=== PATIENT | female | born 1945 | race Caucasian/White ===

== ENCOUNTER 2018-01-07 10:00 | Day surgery (SDC) | payer OTHER ==
[~2018-01-07] VITALS: Ht 157.5 cm; Wt 104.7 kg
[~2018-01-07 10:00] MED LIST: CEPH500 PO; CHOL10002 PO; Coq-10100 MG PO; Fish Oil 1,0001 EAC3 PO; HYDACE5 PO; LEVSOD75 PO; LOSHYD PO; Prinivil10 MG PO; ROSU5 PO
[2018-05-22] MEDS ORDERED: ASPI325EC PO (13:31)
[2018-05-22] MEDS ORDERED: Roxicodone5 MG PO (13:31)
== END 2018-01-07 12:34 | disposition home or self-care (01) ==
LOC: ORSCSDS 10:00
PROVIDERS: Internal Medicine Gastroenterology
PROC: 0DBK8ZX Excision of Ascending Colon, Via Natural or Artificial Opening Endoscopic, Diagnostic (ICD-10-PCS; principal; 2018-01-07 11:30)
PROC: 0DBP8ZX Excision of Rectum, Via Natural or Artificial Opening Endoscopic, Diagnostic (ICD-10-PCS; principal; 2018-01-07 11:30)
DX: Z12.11 Encounter for screening for malignant neoplasm of colon (principal); D12.2 Benign neoplasm of ascending colon; K62.1 Rectal polyp; K64.8 Other hemorrhoids; K57.30 Diverticulosis of large intestine without perforation or abscess without bleeding; Z86.010 Personal history of colon polyps; I10 Essential (primary) hypertension; G47.33 Obstructive sleep apnea (adult) (pediatric); J44.9 Chronic obstructive pulmonary disease, unspecified; E78.5 Hyperlipidemia, unspecified; E03.9 Hypothyroidism, unspecified; E66.01 Morbid (severe) obesity due to excess calories; Z68.41 Body mass index [BMI] 40.0-44.9, adult; Z87.891 Personal history of nicotine dependence; Z79.899 Other long term (current) drug therapy
CPT/HCPCS: 88305; J2250; J7120

== ENCOUNTER 2018-05-21 05:55 | Day surgery (SDC) | payer OTHER ==
[~2018-05-21] VITALS: Ht 157.5 cm; Wt 94.3 kg
[2018-05-22 05:03] LABS: BASOPHILS ABSOLUTE AUTO 0.01 K/mm3 (0.00-0.23); BASOPHILS PERCENT AUTO 0 % (0-2); EOSINOPHILS ABSOLUTE AUTO 0.02 K/mm3 (0.00-0.68); EOSINOPHILS PERCENT AUTO 0 % (0-6); Hematocrit 31.9 % (33.0-51.0); Hemoglobin 10.7 g/dL (11.5-16.0); IMMATURE GRAN PERCENT AUTO 1 % (0-1); LYMPHOCYTES ABSOLUTE AUTO 1.13 K/mm3 (0.84-5.20); LYMPHOCYTES PERCENT AUTO 11 % (21-46); MONOCYTES ABSOLUTE AUTO 0.77 K/mm3 (0.16-1.47); MONOCYTES PERCENT AUTO 8 % (4-13); Mean Corpuscular HGB 28.8 pg (26.0-34.0); Mean Corpuscular HGB Conc 33.5 g/dL (31.5-36.5); Mean Corpuscular Volume 86 fL (80-100); NEUTROPHILS PERCENT AUTO 80 % (41-73); Platelet Count 112 K/mm3 (150-400); RDW Coefficient Variation 12.7 % (11.7-14.2); RDW Standard Deviation 39.5 fL (35.1-46.3); Red Blood Cell Count 3.72 M/mm3 (3.80-5.20); White Blood Cell Count 10.33 K/mm3 (4.00-11.30)
[2018-05-22 05:30] LABS: Bun/Creatinine Ratio 21.1 (12.0-20.0); Calcium, Blood 8.8 mg/dL (8.5-10.1); Creatinine, Blood 1.09 mg/dL (0.40-1.00); Potassium, Blood 4.2 mmol/L (3.5-5.5)
[2018-05-22] MEDS ORDERED: ASPI325EC PO ×2 (13:31)
[2018-05-22] MEDS ORDERED: Roxicodone5 MG PO ×2 (13:31)
[2018-05-23] MEDS ORDERED: METO10 PO (06:05)
== END 2018-05-22 14:49 | disposition home or self-care (01) ==
LOC: ORSCMMR 05:55 → ORD 07:30 → ORSCMMR 07:30 → SURS 10:43 → ORSCMMR 22:41
PROVIDERS: Orthopaedic Surgery
PROC: 0SRD0J9 Replacement of Left Knee Joint with Synthetic Substitute, Cemented, Open Approach (ICD-10-PCS; principal; 2018-05-21 07:30)
DX: M17.12 Unilateral primary osteoarthritis, left knee (principal); E03.9 Hypothyroidism, unspecified; E78.5 Hyperlipidemia, unspecified; I10 Essential (primary) hypertension; G47.33 Obstructive sleep apnea (adult) (pediatric); Z87.891 Personal history of nicotine dependence; E66.01 Morbid (severe) obesity due to excess calories; Z68.38 Body mass index [BMI] 38.0-38.9, adult; Z79.899 Other long term (current) drug therapy
CPT/HCPCS: 36415; 73560-LT; 80048; 85025; 86850; 86900; 86901; 88300; 94762; 97116; 97161; 97530; C1713; C1776; G8978; G8979; J0171; J0690; J0735; J1100; J1885; J2001; J2250; J2405; J2550; J2795; J3010; J7120

== ENCOUNTER 2018-05-23 03:13 | Emergency (ER) | payer OTHER ==
[~2018-05-23] VITALS: Ht 157.5 cm; Wt 91.6 kg
[~2018-05-23 03:13] MED LIST changes: +ASPI325EC PO; +Roxicodone5 MG PO
[2018-05-23] MEDS ORDERED: METO10 PO (06:05)
== END 2018-05-23 06:23 | disposition home or self-care (01) ==
LOC: ER 03:13
DX: R11.2 Nausea with vomiting, unspecified (principal); G89.18 Other acute postprocedural pain; I10 Essential (primary) hypertension; E03.9 Hypothyroidism, unspecified; Z88.8 Allergy status to other drugs, medicaments and biological substances; Z91.030 Bee allergy status; Z88.2 Allergy status to sulfonamides; Z79.899 Other long term (current) drug therapy; Z79.82 Long term (current) use of aspirin
CPT/HCPCS: 96372; 99283; J2765

== ENCOUNTER 2021-02-23 09:42 | Day surgery (SDC) | payer OTHER ==
[~2021-02-23] VITALS: Ht 157.5 cm; Wt 104.7 kg
[~2021-02-23 09:42] MED LIST changes: +Fish Oil 1 PO; -Fish Oil 1,0001 EAC3 PO; +Lisinopril-Hct1 EAC4 PO; +METO10 PO; +STOOL SOFTENER PO
== END 2021-02-23 11:45 | disposition home or self-care (01) ==
LOC: ORSCSDS 09:42
PROVIDERS: Internal Medicine Gastroenterology
PROC: 0DBK8ZX Excision of Ascending Colon, Via Natural or Artificial Opening Endoscopic, Diagnostic (ICD-10-PCS; principal; 2021-02-23 11:00)
PROC: 0DBM8ZX Excision of Descending Colon, Via Natural or Artificial Opening Endoscopic, Diagnostic (ICD-10-PCS; principal; 2021-02-23 11:00)
PROC: 0DBP8ZX Excision of Rectum, Via Natural or Artificial Opening Endoscopic, Diagnostic (ICD-10-PCS; principal; 2021-02-23 11:00)
PROC: 0DBH8ZX Excision of Cecum, Via Natural or Artificial Opening Endoscopic, Diagnostic (ICD-10-PCS; principal; 2021-02-23 11:00)
DX: Z12.11 Encounter for screening for malignant neoplasm of colon (principal); Z86.010 Personal history of colon polyps; D12.0 Benign neoplasm of cecum; D12.2 Benign neoplasm of ascending colon; K63.5 Polyp of colon; K62.1 Rectal polyp; K64.1 Second degree hemorrhoids; I10 Essential (primary) hypertension; G47.33 Obstructive sleep apnea (adult) (pediatric); J44.9 Chronic obstructive pulmonary disease, unspecified; E78.5 Hyperlipidemia, unspecified; I48.91 Unspecified atrial fibrillation; Z87.891 Personal history of nicotine dependence; E03.9 Hypothyroidism, unspecified; Z86.73 Personal history of transient ischemic attack (TIA), and cerebral infarction without residual deficits; Z79.899 Other long term (current) drug therapy
CPT/HCPCS: 88305; J2704; J7120

== ENCOUNTER 2024-07-29 07:45 | Day surgery (SDC) | payer OTHER ==
[~2024-07-29] VITALS: Ht 160 cm; Wt 89.4 kg
[~2024-07-29 07:45] MED LIST changes: +Erythromycin 0.5% Opth Oint 1 gm ONE; +NS 500 ML IV ONE; +OMEP20ER
[2024-07-29] MEDS ORDERED: CENTRUM SILVER1 EAC2 PO (08:23)
[2024-07-29] MEDS ORDERED: NS 500 ML IV ONE (08:33)
--- NOTE | 2024-07-29 08:34 | NUR ---
07/29/24 0834 Matthew Quintana CALL LIGHT WITHIN REACH.
[2024-07-29] MEDS ORDERED: propofoL 20 ML IV ONE (08:51)
[2024-07-29] MEDS ORDERED: Bupivacaine 0.75% Inj 30 ML Vial INJ ONE ×2 (09:26→09:31)
[2024-07-29] MEDS ORDERED: Lidocaine 2%-Epineph 1:100000 20 ML MDV INJ ONE ×2 (09:26)
[2024-07-29] MEDS ORDERED: Sugarcaine Ophth Soln 3 mL SYR BOTHEYES ONE ×3 (09:29→09:47)
[2024-07-29 09:56] VITALS: BP 159/67
== END 2024-07-29 10:19 | disposition home or self-care (01) ==
LOC: ORSCSDS 07:45
PROVIDERS: Ophthalmology
PROC: 080PXZZ Alteration of Left Upper Eyelid, External Approach (ICD-10-PCS; principal; 2024-07-29 09:00)
PROC: 080NXZZ Alteration of Right Upper Eyelid, External Approach (ICD-10-PCS; principal; 2024-07-29 09:00)
DX: H02.831 Dermatochalasis of right upper eyelid (principal); H02.834 Dermatochalasis of left upper eyelid; I10 Essential (primary) hypertension; J44.9 Chronic obstructive pulmonary disease, unspecified; K21.9 Gastro-esophageal reflux disease without esophagitis; Z79.899 Other long term (current) drug therapy
CPT/HCPCS: 82947; A9270; J2704; J7040

== ENCOUNTER → 2024-08-04 | Outpatient (CLI) | payer OTHER ==
[~2024-08-04] MED LIST changes: +CENTRUM SILVER1 EAC2 PO; -Erythromycin 0.5% Opth Oint 1 gm ONE; -NS 500 ML IV ONE
== END ==
LOC: LAB SHORT 15:05 → PLD 15:05
DX: D48.5 Neoplasm of uncertain behavior of skin (principal)
CPT/HCPCS: 88312

== ENCOUNTER 2024-08-30 18:10 | Inpatient (IN) | payer OTHER ==
[~2024-08-30] VITALS: Ht 157.5 cm; Wt 89.6 kg
[~2024-08-30 18:10] MED LIST changes: +Lactated Ringer's 1,000 ML IV SCH
[2024-08-30 19:54] LABS: BASOPHILS ABSOLUTE AUTO 0.03 K/mm3 (0.00-0.23); BASOPHILS PERCENT AUTO 1 % (0-2); EOSINOPHILS ABSOLUTE AUTO 0.19 K/mm3 (0.00-0.68); EOSINOPHILS PERCENT AUTO 4 % (0-6); Hematocrit 34.5 % (33.0-51.0); Hemoglobin 11.4 g/dL (11.5-16.0); IMMATURE GRAN ABSOLUTE AUTO 0.02 K/mm3 (0.00-0.10); IMMATURE GRAN PERCENT AUTO 0 % (0-1); LYMPHOCYTES ABSOLUTE AUTO 2.48 K/mm3 (0.84-5.20); LYMPHOCYTES PERCENT AUTO 48 % (21-46); MONOCYTES ABSOLUTE AUTO 0.65 K/mm3 (0.16-1.47); MONOCYTES PERCENT AUTO 13 % (4-13); Mean Corpuscular HGB 30.4 pg (26.0-34.0); Mean Corpuscular Volume 92 fL (80-100); NEUTROPHILS ABSOLUTE AUTO 1.82 K/mm3 (1.96-9.15); NEUTROPHILS PERCENT AUTO 35 % (41-73); Platelet Count 131 K/mm3 (150-400); RDW Coefficient Variation 13.2 % (11.7-14.2); RDW Standard Deviation 44.7 fL (35.1-46.3); Red Blood Cell Count 3.75 M/mm3 (3.80-5.20); White Blood Cell Count 5.19 K/mm3 (4.00-11.30)
[2024-08-30 20:19] LABS: Albumin, Blood 3.6 g/dL (3.4-5.0); Bilirubin, Total 0.4 mg/dL (0.1-1.0); Bun/Creatinine Ratio 25.3 (12.0-20.0); Calcium, Blood 9.5 mg/dL (8.5-10.1); Creatinine, Blood 0.87 mg/dL (0.40-1.00); Globulin, Blood 3.6 g/dL (2.2-4.0); Potassium, Blood 4.2 mmol/L (3.5-5.5); Total Protein, Blood 7.2 g/dL (6.4-8.2)
[2024-08-30] MEDS ORDERED: Nitroglycerin 0.4 MG SUBL SL PRN (23:25)
[2024-08-30] MEDS ORDERED: FLU VACC TS2024-25(6MOS UP)/PF 45 MCG/0.5 ML SYRINGE IM ONE (23:25)
[2024-08-30] MEDS ORDERED: Ondansetron HCl 2 MG / ML 2ML Vial IV PRN (23:25)
[2024-08-30 23:42] LABS: Magnesium, Blood 1.9 mg/dL (1.6-2.4)
[2024-08-31] MEDS ORDERED: Lactated Ringer's 1,000 ML IV ONE (01:27)
[2024-08-31] MEDS ORDERED: METFORMIN HCL500 M2 PO (01:46)
[2024-08-31] MEDS ORDERED: CENTRUM SILVER1 EAC2 PO (01:47)
[2024-08-31] MEDS ORDERED: Preservision S1 EACH PO (01:48)
[2024-08-31] MEDS ORDERED: Levothyroxine Sodium 0.075 MG Tab PO SCH ×2 (06:00→18:00)
[2024-08-31 06:23] LABS: BASOPHILS ABSOLUTE AUTO 0.02 K/mm3 (0.00-0.23); BASOPHILS PERCENT AUTO 1 % (0-2); EOSINOPHILS ABSOLUTE AUTO 0.19 K/mm3 (0.00-0.68); EOSINOPHILS PERCENT AUTO 5 % (0-6); Hematocrit 31.5 % (33.0-51.0); Hemoglobin 10.4 g/dL (11.5-16.0); IMMATURE GRAN ABSOLUTE AUTO 0.01 K/mm3 (0.00-0.10); IMMATURE GRAN PERCENT AUTO 0 % (0-1); LYMPHOCYTES ABSOLUTE AUTO 1.88 K/mm3 (0.84-5.20); LYMPHOCYTES PERCENT AUTO 48 % (21-46); MONOCYTES ABSOLUTE AUTO 0.38 K/mm3 (0.16-1.47); MONOCYTES PERCENT AUTO 10 % (4-13); Mean Corpuscular HGB 30.1 pg (26.0-34.0); Mean Corpuscular Volume 91 fL (80-100); NEUTROPHILS ABSOLUTE AUTO 1.44 K/mm3 (1.96-9.15); NEUTROPHILS PERCENT AUTO 37 % (41-73); Platelet Count 115 K/mm3 (150-400); RDW Coefficient Variation 13.3 % (11.7-14.2); RDW Standard Deviation 44.9 fL (35.1-46.3); Red Blood Cell Count 3.45 M/mm3 (3.80-5.20); White Blood Cell Count 3.92 K/mm3 (4.00-11.30)
[2024-08-31 06:40] LABS: Albumin, Blood 3.1 g/dL (3.4-5.0); Albumin/Globulin Ratio 0.9 (0.8-1.8); Bilirubin, Total 0.5 mg/dL (0.1-1.0); Bun/Creatinine Ratio 23.8 (12.0-20.0); Calcium, Blood 8.9 mg/dL (8.5-10.1); Creatinine, Blood 0.8 mg/dL (0.40-1.00); Globulin, Blood 3.3 g/dL (2.2-4.0); Potassium, Blood 3.7 mmol/L (3.5-5.5); Total Protein, Blood 6.4 g/dL (6.4-8.2)
[2024-08-31] MEDS ORDERED: Enoxaparin 40 MG/0.4 ML SYR SC SCH (09:00)
[2024-08-31] MEDS ORDERED: HydroCHLOROthiazide 25 mg Tab PO SCH (09:00)
[2024-08-31] MEDS ORDERED: Aspirin 81 MG Chew PO SCH (09:00)
[2024-08-31] MEDS ORDERED: Docosahexanoic Acid/EPA 1,000 MG CAP PO SCH (09:00)
[2024-08-31] MEDS ORDERED: Lisinopril 10 MG Tab PO SCH (09:00)
[2024-08-31] MEDS ORDERED: Docusate Sodium 100 MG Cap PO SCH (09:00)
[2024-08-31] MEDS ORDERED: Cholecalciferol 1000 Unit Tablet (=25MCG) PO SCH (09:00)
[2024-08-31] MEDS ORDERED: Misc. Tablet PO SCH (09:00)
[2024-08-31] MEDS ORDERED: Aminophylline 250MG / 10ML 10 ML Vial ONE (13:35)
[2024-08-31] MEDS ORDERED: Regadenoson 0.4 MG/5 ML SYRINGE ONE (13:35)
[2024-08-31] MEDS ORDERED: Caffeine Citrated 60 MG/3 ML Vial ONE (13:35)
[2024-08-31 15:50] VITALS: BP 144/64
--- NOTE | 2024-08-31 15:50 | NUR ---
PT ARRIVED TO THE ROOM AT APPROXIMATELY 1545. PT DENIED SOB AND CHEST PAIN. PT EDUCATED TO USE CALL LIGHT. FAMILY AT BEDSIDE FOR SUPPORT.
[2024-08-31] MEDS ORDERED: FISH OIL 1,0001 EA10 PO (16:05)
[2024-08-31] MEDS ORDERED: AREDS PO (16:06)
[2024-08-31] MEDS ORDERED: Docusate Sodiu250 MG PO (16:07)
[2024-08-31] MEDS ORDERED: THERA-D2000 UNIT PO (16:08)
[2024-08-31] MEDS ORDERED: UBID10 PO (16:09)
[2024-08-31] MEDS ORDERED: LEVSOD75 PO (16:09)
[2024-08-31] MEDS ORDERED: METF500 PO (16:10)
[2024-08-31] MEDS ORDERED: ROSUVASTATIN CAL5 MG PO (16:10)
[2024-08-31 20:16] VITALS: BP 118/43
--- NOTE | 2024-08-31 20:26 | NUR ---
SHIFT SUMMARY NO SIGNIFICANT CHANGES TO REPORT SINCE PT ARRIVED FROM THE ER. PT DENIED ANY CHEST DISCOMFORT/SOB SINCE ARRIVAL TO THE ROOM FROM ER. DURING BEDSIDE REPORT PT REPORTED THAT SHE BRIEFLY HAD CHEST DISCOMFORT AFTER EATING AND IT RESOLVED SO SHE DID NOT NOTIFY THIS RN. PT WAS EDUCATED TO NOTIFY THE RN OF ANY CHANGES R/T SOB AND CHEST PAIN EVEN IF THEY RESOLVE. PT IS INDEPENDENT IN THE ROOM. SHE USES THE CALL LIGHT APPROPRIATELY.
--- NOTE | 2024-08-31 20:30 | NUR ---
METFORMIN: PT REP BROUGHT IN HOME METFORMIN AND "EYE PILL". PT REP HAVING TAKEN BOTH OF THESE HOME MEDS THIS BRYANT AFTER SPOUSE BROUGHT MEDS IN FOR HER. PT EDUCATED ON IMPORTANCE OF NOT TAKING HOME MEDS AND IMPORTANCE NOT TAKING ANY MEDS W/O DISCUSSING W/NURSING STAFF. PRIMARY RN UPDATED.
[2024-08-31] MEDS ORDERED: Calcium Carbonate 500 MG Tab Chew PO PRN (20:55)
--- NOTE | 2024-08-31 20:56 | NUR ---
PT REPORTED SHE HAD EPISODE OF CP AFTER EATING DINNER,BUT VERB IT HAD RESOLVED PRIOR TO 1900 SHIFT CHANGE.AT THIS TIME, PT REPORTS HAVING PRESSURE TO EPIGASTRIC AREA WITH RADIATION "STRAIGHT THRU TO BACK",AND ADDITIONAL PRESSURE UNDER L BREAST.PT REPORTS LASTED APPROX 5 MINUTES.SEE VS.TELE SHOWS SINUS RHYTHMN WITH FREQUENT PVCS.PT ALERT AND RESTING UPRIGHT IN BED WITH AT SIDE.DENIES SOB,NO N/T,NO VISION CHANGES OR HEADACHES,CIRC CHECKS INTACT.I CALLED DR SINCLAIR AND ADVISED OF ABOVE.ALSO ADVISED PT VERB SHE DRANK 2 GLASSES OF SODA AFTER FIRST PORTION OF STRESS TEST.I NOTIFIED DR JON OF SODA DUE TO STRESS TEST SECOND PORTION TOMORROW AM, VS REVIEWED.ALSO ADVISED PT TOOK HER METFORMIN AND "AREDS "FOR EYES PRIOR TO NOTIFYING HOLE FILLER.I DISCUSSED WITH PT RESTRICTIONS.
[2024-09-01 04:02] VITALS: BP 123/37
[2024-09-01 04:23] LABS: BASOPHILS ABSOLUTE AUTO 0.03 K/mm3 (0.00-0.23); BASOPHILS PERCENT AUTO 1 % (0-2); EOSINOPHILS ABSOLUTE AUTO 0.14 K/mm3 (0.00-0.68); EOSINOPHILS PERCENT AUTO 4 % (0-6); Hematocrit 31.3 % (33.0-51.0); Hemoglobin 10.3 g/dL (11.5-16.0); IMMATURE GRAN PERCENT AUTO 0 % (0-1); LYMPHOCYTES ABSOLUTE AUTO 1.88 K/mm3 (0.84-5.20); LYMPHOCYTES PERCENT AUTO 52 % (21-46); MONOCYTES ABSOLUTE AUTO 0.34 K/mm3 (0.16-1.47); MONOCYTES PERCENT AUTO 9 % (4-13); Mean Corpuscular HGB 30.1 pg (26.0-34.0); Mean Corpuscular HGB Conc 32.9 g/dL (31.5-36.5); Mean Corpuscular Volume 92 fL (80-100); NEUTROPHILS ABSOLUTE AUTO 1.25 K/mm3 (1.96-9.15); NEUTROPHILS PERCENT AUTO 35 % (41-73); Platelet Count 111 K/mm3 (150-400); RDW Coefficient Variation 13.3 % (11.7-14.2); Red Blood Cell Count 3.42 M/mm3 (3.80-5.20); White Blood Cell Count 3.64 K/mm3 (4.00-11.30)
[2024-09-01 04:42] LABS: Bun/Creatinine Ratio 28.3 (12.0-20.0); Calcium, Blood 8.9 mg/dL (8.5-10.1); Creatinine, Blood 0.81 mg/dL (0.40-1.00); Potassium, Blood 3.8 mmol/L (3.5-5.5)
--- NOTE | 2024-09-01 06:38 | NUR ---
SUMMARY NO FURTHER REPORTS OF CHEST DISCOMFORT.PT SLEPT MOST OF NIGHT.PENDING SECOND PART OF STRESS TEST THIS AM.
[2024-09-01 07:13] VITALS: BP 110/36
[2024-09-01] MEDS ORDERED: PRESERVISION A1 EAC1 PO (09:48)
[2024-09-01] MEDS ORDERED: TRIDERM28.4 GM TOP (10:45)
[2024-09-01 14:04] VITALS: BP 135/44
--- NOTE | 2024-09-01 19:37 | NUR ---
SHIFT SUMMARY S/P STRESS TEST. CARDIOLOGY CONSULT TODAY. ANTICIPATED ANGIO TOMORROW AM. VSS, TELE - SINUS @ 78. PT DID NOT REPORT CHEST PAIN/PRESSURE TO THIS RN TODAY. PT TOLERATING REG DIET TODAY. VOIDING IND. AMB IND TO SBA. SALIENE LOCKED. NPO AT MIDNIGHT R/T PROCEDURE. CALL LIGHT IN REACH, BED IN LOWEST POSITION, REPORT GIVEN TO ZAYNAB RN.
[2024-09-01 19:50] VITALS: BP 128/48
[2024-09-02] VITALS (16 sets, daily range): BP systolic 95–152; BP diastolic 47–85
[2024-09-02 05:07] LABS: BASOPHILS ABSOLUTE AUTO 0.02 K/mm3 (0.00-0.23); BASOPHILS PERCENT AUTO 1 % (0-2); EOSINOPHILS PERCENT AUTO 5 % (0-6); Hemoglobin 10.3 g/dL (11.5-16.0); IMMATURE GRAN ABSOLUTE AUTO 0.01 K/mm3 (0.00-0.10); IMMATURE GRAN PERCENT AUTO 0 % (0-1); LYMPHOCYTES ABSOLUTE AUTO 1.69 K/mm3 (0.84-5.20); LYMPHOCYTES PERCENT AUTO 44 % (21-46); MONOCYTES ABSOLUTE AUTO 0.42 K/mm3 (0.16-1.47); MONOCYTES PERCENT AUTO 11 % (4-13); Mean Corpuscular HGB 30.4 pg (26.0-34.0); Mean Corpuscular HGB Conc 33.2 g/dL (31.5-36.5); Mean Corpuscular Volume 91 fL (80-100); NEUTROPHILS ABSOLUTE AUTO 1.48 K/mm3 (1.96-9.15); NEUTROPHILS PERCENT AUTO 39 % (41-73); Platelet Count 112 K/mm3 (150-400); RDW Coefficient Variation 13.3 % (11.7-14.2); RDW Standard Deviation 44.4 fL (35.1-46.3); Red Blood Cell Count 3.39 M/mm3 (3.80-5.20); White Blood Cell Count 3.82 K/mm3 (4.00-11.30)
--- NOTE | 2024-09-02 05:08 | NUR ---
SHIFT SUMMARY MARKNALEE WAS ALERT AND FULLY ORIENTED ON ASSESMENT. PT DENIES C/P/PRESSURE TONIGHT, STRESS TEST YESTERDAY, ANTICIPATING ANGIO ON DAYSHIFT TODAY. NO ALERTS FROM TELE. PT KEPT NPO FROM MIDNIGHT. SBA, HOME CPAP IN USE. NO ACUTE EVENTS, NO CHANGES TO PT CONDITION. PT SLEEPING WITH CALL LIGHT IN REACH.
[2024-09-02 05:53] LABS: Bun/Creatinine Ratio 25.5 (12.0-20.0); Creatinine, Blood 0.9 mg/dL (0.40-1.00); Potassium, Blood 3.8 mmol/L (3.5-5.5)
[2024-09-02] MEDS ORDERED: Empagliflozin 10 MG TAB PO SCH (09:00)
[2024-09-02] MEDS ORDERED: NS 250 ML IV ONE (12:01)
[2024-09-02] MEDS ORDERED: Heparin Sodium 1000 Units/ML 10ML MDV ONE ×2 (12:01→12:46)
[2024-09-02] MEDS ORDERED: Verapamil HCL 2.5 MG/ML 2ML Injection ONE (12:01)
[2024-09-02] MEDS ORDERED: NS 1,000 ML IV ONE ×2 (12:01→12:46)
[2024-09-02] MEDS ORDERED: FentaNYL Citrate 50 MCG/ML 2 ML Injection ONE (12:57)
[2024-09-02] MEDS ORDERED: Midazolam HCl 1MG / ML 2ML Vial ONE (12:58)
--- NOTE | 2024-09-02 13:05 | NUR ---
PT TO CLEARING HAND WITH YANELI LOONEY. REPORT TO PCU NURSE.
--- NOTE | 2024-09-02 13:51 | NUR ---
PT ARRIVED ON UNIT VIA BED FROM [facility] WITH CHART. IS AT BEDSIDE AND VITAL SIGNS WERE DONE. SITE LOOKS GOOD, NO BLEEDING OR HEMATOMA, TR BAND IN PLACE. PT GIVEN SNACKS AND DIET ORDERED FOR DINNER.
[2024-09-02] MEDS ORDERED: Acetaminophen 500 MG Tab PO PRN (18:10)
--- NOTE | 2024-09-02 20:29 | NUR ---
ASSUMPTION OF CARE AFTER RECEIVING REPORT FROM STARR RN, THIS RN ASSUMED CARE AT APPROX 1915. PATIENT ALERT AND ORIENTED X4. PERRLA. COMMUNICATES NEEDS EFFECTIVELY. INDEPENDENT W/ ADLs. CALLS APPROPRIATELY FOR ASSISTANCE WITH DEVICES PRN. TELEMETRY SHOWING SINUS JIA 50s-60s. BP STABLE, SBP 110s. MAP >65. DENIES CHEST PAIN, PRESSURE. S/P ANGIO WITH R RADIAL SITE. SITE WNL - SOFT, NONTENDER. NO HEMATOMA. TEGADERM DX C/D/I. ARMBOARD IN PLACE. REPORTING 2/10 MILD PAIN R ARM. MEDICATED PER EMAR PRIOR TO ASSUMPTION OF CARE WITH RELIEF. ON ROOM AIR, SATs >90%. HOME CPAP AT BEDSIDE TO USE WITH SLEEP. RT AT BEDSIDE THIS EVENING TO SET UP DEVICE. CALL LIGHT IN REACH.
--- NOTE | 2024-09-02 21:13 | NUR ---
MD CARLSON ROUNDING IN UNIT. PATIENT WITHOUT MORNING LAB ORDERS, DISCUSSED WITH . TO REVIEW CHART AND PLACE ORDERS
[2024-09-03 03:21] VITALS: BP 117/41
[2024-09-03 04:49] LABS: BASOPHILS ABSOLUTE AUTO 0.02 K/mm3 (0.00-0.23); BASOPHILS PERCENT AUTO 1 % (0-2); EOSINOPHILS ABSOLUTE AUTO 0.17 K/mm3 (0.00-0.68); EOSINOPHILS PERCENT AUTO 5 % (0-6); Hematocrit 31.4 % (33.0-51.0); Hemoglobin 10.3 g/dL (11.5-16.0); IMMATURE GRAN ABSOLUTE AUTO 0.01 K/mm3 (0.00-0.10); IMMATURE GRAN PERCENT AUTO 0 % (0-1); LYMPHOCYTES ABSOLUTE AUTO 1.76 K/mm3 (0.84-5.20); LYMPHOCYTES PERCENT AUTO 47 % (21-46); MONOCYTES ABSOLUTE AUTO 0.46 K/mm3 (0.16-1.47); MONOCYTES PERCENT AUTO 12 % (4-13); Mean Corpuscular HGB 30.4 pg (26.0-34.0); Mean Corpuscular HGB Conc 32.8 g/dL (31.5-36.5); Mean Corpuscular Volume 93 fL (80-100); NEUTROPHILS ABSOLUTE AUTO 1.33 K/mm3 (1.96-9.15); NEUTROPHILS PERCENT AUTO 36 % (41-73); Platelet Count 107 K/mm3 (150-400); RDW Coefficient Variation 13.2 % (11.7-14.2); RDW Standard Deviation 45.2 fL (35.1-46.3); Red Blood Cell Count 3.39 M/mm3 (3.80-5.20); White Blood Cell Count 3.75 K/mm3 (4.00-11.30)
--- NOTE | 2024-09-03 05:13 | NUR ---
SHIFT SUMMARY NO ACUTE EVENTS SINCE ASSUMPTION OF CARE NOTE. PATIENT SLEPT OR RESTED QUIETLY THROUGHOUT NIGHT, EASILY AROUSABLE WITH VERBAL STIMULI. TELEMETRY SHOWING SINUS JIA 50s-60s. SOFT DIASTOLIC PRESSURE, SUSTAINING 40s. SYSTOLIC 100s-110s. MAP >60. PATIENT ASYMPTOMATIC - STATES THAT HER BP CAN TEND TO RUN THAT LOW AT BASELINE. R RADIAL SITE WNL - SOFT, NONTENDER. NO HEMATOMA. TEGADERM DX C/D/I. ARMBOARD IN PLACE. MD D[place]AS ROUNDED ON PATIENT - NO NEW ORDERS RECEIVED. IS ABLE TO DC HOME TODAY. REMAINS ON ROOM AIR WHEN AWAKE, SATs >90%. USING HOME CPAP WHILE SLEEPING. UP TO RESTROOM WITH SBA. VOIDING. SMALL BM THIS SHIFT. REPOSITIONING HERSELF INDEPENDENTLY IN BED. CALL LIGHT IN REACH. WILL CONTINUE TO MONITOR AND REPORT TO ONCOMING RN.
[2024-09-03 05:20] LABS: Albumin, Blood 3.1 g/dL (3.4-5.0); Albumin/Globulin Ratio 0.9 (0.8-1.8); Bilirubin, Total 0.6 mg/dL (0.1-1.0); Bun/Creatinine Ratio 33.3 (12.0-20.0); Calcium, Blood 8.7 mg/dL (8.5-10.1); Creatinine, Blood 0.75 mg/dL (0.40-1.00); Globulin, Blood 3.3 g/dL (2.2-4.0); Potassium, Blood 3.9 mmol/L (3.5-5.5); Total Protein, Blood 6.4 g/dL (6.4-8.2)
[2024-09-03] MEDS ORDERED: Spironolactone 12.5 MG TAB PO SCH (09:00)
[2024-09-03] MEDS ORDERED: JARDIANCE10 MG PO (09:05)
[2024-09-03] MEDS ORDERED: LISI10 PO (09:06)
--- NOTE | 2024-09-03 09:58 | NUR ---
DISCHARGE NOTE: PT A&OX4 AND SATTING >92% ON ROOM AIR. TELE TAKEN OFF ALONG WITH IV TAKEN OUT. MEDICATIONS THEY BROUGHT IN WAS GIVEN TO AND THEY TOOK THEIR FOAM PIECE FOR UNDER HER BED WITH THEM. WENT OVER DISCHARGE INSTURCTIONS WITH HER AND AND THEY KNOW WHICH NEW MEDCIATIONS TO GRAB AT THEIR PRESCRIBED [facility] IN [place]. PATIENT KNOWS TO SCHEDULE A FOLLOWUP APPOINTMENT WITH HER PRIMARY CARE PROVIDER WITHIN 1-2 WEEKS. WAS TAKEN OUT WITH PATIENT CROOK OPERATOR VIA WHEELCHAIR WITH ALL BELONGINGS.
== END 2024-09-03 09:35 | disposition home or self-care (01) | DRG 287 ==
LOC: ER 18:10 → ERHOLD 18:11 → SURS 23:20 → PCU 09-02 13:45
PROVIDERS: Internal Medicine; Student in an Organized Health Care Education/Training Program; ADMIT Student in an Organized Health Care Education/Training Program
PROC: 4A023N7 Measurement of Cardiac Sampling and Pressure, Left Heart, Percutaneous Approach (ICD-10-PCS; principal; 2024-09-02)
PROC: B211YZZ Fluoroscopy of Multiple Coronary Arteries using Other Contrast (ICD-10-PCS; 2024-09-02)
DX: I49.3 Ventricular premature depolarization (principal); R94.39 Abnormal result of other cardiovascular function study; I42.9 Cardiomyopathy, unspecified; I10 Essential (primary) hypertension; E03.9 Hypothyroidism, unspecified; K21.9 Gastro-esophageal reflux disease without esophagitis; G47.33 Obstructive sleep apnea (adult) (pediatric); K76.0 Fatty (change of) liver, not elsewhere classified; Z96.652 Presence of left artificial knee joint; D69.6 Thrombocytopenia, unspecified; R73.03 Prediabetes; E78.2 Mixed hyperlipidemia; Z90.49 Acquired absence of other specified parts of digestive tract; Z87.891 Personal history of nicotine dependence; Z88.2 Allergy status to sulfonamides; Z88.8 Allergy status to other drugs, medicaments and biological substances; Z79.84 Long term (current) use of oral hypoglycemic drugs; Z79.899 Other long term (current) drug therapy
CPT/HCPCS: 36415; 71046; 76937; 78452; 80048; 80053; 83690; 83735; 83880; 84484; 85025; 93005; 93010; 93017; 93306; 93458; 94762; 96360; 96361; 96372-59; 99152; 99153; 99285-25; A9270; A9500; C1769; C1887; C1894; G0378; J0280; J0706; J1644; J1650; J2250; J2785; J3010; J7030; J7050; J7120; Q9967